=== PATIENT | female | born 1990 | race Asian ===

== ENCOUNTER 2019-03-07 07:42 | Inpatient (IN) | payer OTHER ==
[2019-03-07] MEDS ORDERED: METHYLERGONOVINE 0.2 MG INJ IM ×2 (08:00→14:30)
[2019-03-07] MEDS ORDERED: CARBOPROST 250 MCG INJ IM ×2 (08:00→14:30)
[2019-03-07] MEDS ORDERED: OXYTOCIN 30 UNITS/LR 500 ML IV ×3 (08:00→14:30)
[2019-03-07] MEDS ORDERED: MISOPROSTOL 200 MCG TAB PR ×2 (08:00→14:30)
[2019-03-07] MEDS: LACTATED RINGER'S 1,000 ML IV ×5 (08:10→20:56)
[2019-03-07 08:56] LABS: ADD MAN DIFF? NO
[2019-03-07 09:02] LABS: BASOPHILS % 0.5 % (0.0-2.0); EOSINOPHILS # 0.1 10^3/ul (0.0-0.5); EOSINOPHILS % 1.1 % (0.0-7.0); HEMOGLOBIN 12.8 g/dl (12.0-16.0); LYMPHOCYTES # 2.2 10^3/ul (0.8-2.9); LYMPHOCYTES % 24.9 % (15.0-51.0); MEAN CORPUSCULAR HGB CONC 33.7 g/dl (32.0-37.0); MONOCYTE # 0.8 10^3/ul (0.3-0.9); MONOCYTES % 9.3 % (0.0-11.0); NEUTROPHIL # 5.5 10^3/ul (1.6-7.5); NEUTROPHILS % 63.1 % (39.0-77.0); PLATELET COUNT 278 10^3/UL (140-415); RED BLOOD COUNT 4.42 10^6/ul (4.20-5.40); RED CELL DISTRIBUTION WIDTH 13.5 % (11.5-14.5)
[2019-03-07 09:02] LABS: WHITE BLOOD COUNT 8.7 10^3/ul (4.8-10.8)
[2019-03-07 09:33] LABS: INR 0.84; PROTIME 11.6 Sec (11.9-14.9); PT RATIO 0.9
[2019-03-07 09:34] LABS: PARTIAL THROMBOPLASTIN TIME 29.4 Sec (23.0-35.0)
[2019-03-07] MEDS: CITRIC ACID/NA CITRATE 30 ML CUP PO (09:51)
[2019-03-07] MEDS: FAMOTIDINE 20 MG INJ IV (09:52)
[2019-03-07 09:55] LABS: HEPATITIS B SURFACE ANTIGEN NEGATIVE (NEGATIVE)
[2019-03-07] MEDS ORDERED: morphine SULFATE/PF (10 MG/10 ML) INJ (10:07)
[2019-03-07] MEDS ORDERED: PHENYLephrine (100 MCG/ML) 10ML SYG (10:22)
[2019-03-07] MEDS ORDERED: CEFAZOLIN 1 GM INJ (10:30)
[2019-03-07] MEDS ORDERED: ONDANSETRON 4 MG INJ (10:34)
[2019-03-07] MEDS ORDERED: DIPHENHYDRAMINE 50 MG INJ IV ×2 (11:00)
[2019-03-07] MEDS ORDERED: ONDANSETRON 4 MG INJ IV ×2 (11:00)
[2019-03-07] MEDS ORDERED: PROCHLORPERAZINE 10 MG INJ IV (11:00)
[2019-03-07] MEDS ORDERED: NALBUPHINE HCL (10 MG/1 ML) INJ IV (11:00)
[2019-03-07] MEDS ORDERED: HYDROmorphONE 1 MG/5 ML IV SYRINGE IV ×3 (11:00)
[2019-03-07] MEDS ORDERED: NALOXONE (0.4 MG/ML) INJ IV (11:00)
[2019-03-07] MEDS ORDERED: ZOLPIDEM 5 MG TAB PO (11:00)
[2019-03-07] MEDS ORDERED: KETOROLAC 30 MG INJ IV (11:00)
[2019-03-07] MEDS ORDERED: FENTAnyl 50 MCG/ML VIAL IV ×3 (11:00)
[2019-03-07] MEDS ORDERED: HYDROmorphONE 0.5 MG/0.5 ML SYG IV ×2 (11:00)
[2019-03-07] MEDS ORDERED: MEPERIDINE 25 MG INJ IV (11:00)
[2019-03-07] MEDS: OXYTOCIN 30 UNITS/LR 500 ML IV ×2 (11:24→15:28)
[2019-03-07] MEDS: CEFAZOLIN 2 GM/50 ML (PMX) 50 ML IVPB (12:36)
[2019-03-07] MEDS: METOCLOPRAMIDE 10 MG INJ IV (14:15)
[2019-03-07] MEDS ORDERED: NA PHOSPHATE/BIPHOS 133 ML ENEMA PR (14:30)
[2019-03-07] MEDS ORDERED: NACL 0.9% 3 ML SYG IV (14:30)
[2019-03-07 15:09] LABS: RAPID PLASMA REAGIN NONREACTIVE (NR)
[2019-03-08] MEDS: LACTATED RINGER'S 1,000 ML IV ×2 (04:45→13:00)
[2019-03-08 08:15] LABS: ADD MAN DIFF? NO
[2019-03-08] MEDS: KETOROLAC 30 MG INJ IV (08:23)
[2019-03-08 08:37] LABS: BASOPHILS % 0.3 % (0.0-2.0); EOSINOPHILS % 0.3 % (0.0-7.0); HEMATOCRIT 28.1 % (37.0-47.0); HEMOGLOBIN 9.6 g/dl (12.0-16.0); LYMPHOCYTES # 1.5 10^3/ul (0.8-2.9); LYMPHOCYTES % 15.5 % (15.0-51.0); MEAN CORPUSCULAR HEMOGLOBIN 29.5 pg (29.0-33.0); MEAN CORPUSCULAR HGB CONC 34.2 g/dl (32.0-37.0); MEAN CORPUSCULAR VOLUME 86.5 fl (82.0-101.0); MONOCYTE # 0.6 10^3/ul (0.3-0.9); MONOCYTES % 6.3 % (0.0-11.0); NEUTROPHIL # 7.6 10^3/ul (1.6-7.5); PLATELET COUNT 240 10^3/UL (140-415); RED BLOOD COUNT 3.25 10^6/ul (4.20-5.40); RED CELL DISTRIBUTION WIDTH 13.4 % (11.5-14.5)
[2019-03-08 08:37] LABS: WHITE BLOOD COUNT 9.8 10^3/ul (4.8-10.8)
[2019-03-08] MEDS: IBUPROFEN 800 MG TAB PO ×2 (13:51→21:29)
[2019-03-08] MEDS: HYDROCODONE/APAP (5/325) TAB PO (15:18)
[2019-03-09] MEDS: HYDROCODONE/APAP (5/325) TAB PO (01:25)
[2019-03-09] MEDS: LANOLIN HPA 1 PKT TOP (05:33)
[2019-03-09] MEDS: IBUPROFEN 800 MG TAB PO ×3 (05:33→22:29)
[2019-03-10] MEDS: HYDROCODONE/APAP (5/325) TAB PO (04:49)
[2019-03-10] MEDS: IBUPROFEN 800 MG TAB PO ×2 (05:42→13:55)
[2019-03-10] MEDS: DIPHTH/TET/ACEL PERTUSS (ADULT) 0.5 ML VIAL IM* (08:14)
[2019-03-10] MEDS ORDERED: MEASLES,MUMPS,RUBELLA VACCINE INJ SC* (09:00)
== END 2019-03-10 15:47 | disposition home or self-care (01) | DRG 788 ==
LOC: L-D 07:42 → PP1 14:25
PROVIDERS: Obstetrics & Gynecology
PROC: 10D00Z1 Extraction of Products of Conception, Low, Open Approach (ICD-10-PCS; principal; 2019-03-07 15:00)
DX: O65.5 Obstructed labor due to abnormality of maternal pelvic organs (principal); O34.211 Maternal care for low transverse scar from previous cesarean delivery; Z3A.39 39 weeks gestation of pregnancy; Z37.0 Single live birth
CPT/HCPCS: 85025; 85610; 85730; 86592; 86850; 86900; 86901; 87340; 90715; 99464